=== PATIENT | female | born 1930 | race Caucasian/White ===

== ENCOUNTER 2018-12-08 16:21 | Inpatient (IN) ==
[~2018-12-08 16:21] MED LIST: NS 1,000 ML IV PRN; SALINE LOCK IV FLUID XX ONE
[2018-12-08 16:56] LABS: BASO# 0.01 X1000 (0.0-0.2); BASO% 0.1 % (0.0-0.8); EOS# 0.09 X1000 (0.0-0.7); EOS% 1.1 % (0.0-10.0); HEMATOCRIT 38.1 % (37.0-47.0); HEMOGLOBIN 12.3 g/dL (12.0-16.0); LYMPH# 1.11 X1000 (1.2-3.4); LYMPH% 13.2 % (20.5-51.1); MCH 30.7 PG (27-31); MCHC 32.3 g/dL (33-37); MONO# 0.97 X1000 (0.11-0.59); MONO% 11.5 % (1.7-9.3); MPV 8.9 FL (7.4-10.4); NEUT# 6.23 X1000 (1.4-6.5); NEUT% 74.1 % (42.2-75.2); PLT 239 X1000 (130-400); RBC 4.01 XMIL (4.2-5.4); RDW 13.7 % (11.5-14.5); WBC 8.41 X1000 (4.8-10.8)
[2018-12-08 17:09] LABS: INR 0.97; PROTIME 13.6 Seconds (11.0-16.0)
[2018-12-08 17:22] LABS: AGAP 13; ALBUMIN 3.6 g/dL (3.5-5.0); ALKALINE PHOSPHATASE 70 U/L (32-104); BUN 13 mg/dL (8-22); CALCIUM 8.8 mg/dL (8.8-10.2); CHLORIDE 101 mmol/L (98-107); COSMO 282; CREATININE 0.7 mg/dL (0.5-0.9); ESTIMATED GFR > 60; GLUCOSE 115 mg/dL (70-104); GOT 34 U/L (10-30); GPT 15 U/L (10-36); POTASSIUM 4.4 mmol/L (3.5-5.1); SODIUM 141 mmol/L (136-145); TCO2 27 mmol/L (25-35); TOTAL BILIRUBIN 1.29 mg/dL (0.20-1.00); TOTAL PROTEIN 7.1 g/dL (6.3-8.3)
[2018-12-08 17:25] LABS: CK PROFILE 191 U/L (24-173)
[2018-12-08 17:40] LABS: CK INDEX 2.5 (0.0-2.5); CK-MB 4.86 ng/mL (0.0-5.0)
[2018-12-08] MEDS ORDERED: NORCO-5 PO PRN (19:09)
[2018-12-08] MEDS ORDERED: LOPRESSOR PO ONE (19:13)
[2018-12-08] MEDS: TIMOPTIC 0.5% OPH SOLUTION BOTH EYES SCH (21:10)
[2018-12-08] MEDS: REMERON PO SCH (21:11)
[2018-12-08] MEDS: ZYPREXA PO SCH (21:11)
[2018-12-08] MEDS: ARICEPT PO SCH (21:11)
--- NOTE | 2018-12-09 07:38 | HISTORY AND PHYSICAL ---
ATTENDING PHYSICIAN: Dr. Asher Spencer. ADMITTING PHYSICIAN: Dr. Asher Spencer. CHIEF COMPLAINT: Failure to thrive, inability to independently transfer, and poor p.o. intake. HISTORY OF PRESENT ILLNESS: Ms. Kirk is an 88-year-old patient of mine with multiple medical problems including but not limited to dementia complicated by behavioral disturbances, history of peripheral vascular disease, history of microscopic hematuria, history of vitamin D deficiency, history of impaired fasting glucose, history of hypertension, dyslipidemia, hypothyroidism, osteoporosis, and pulmonary fibrosis. She was discharged on the from [facility] after suffering a fall, complicated by a subdural bleed. She was subsequently transferred to [facility] and remained there through the weekend. The son reports she had several CT scans to ensure stability of intracranial bleed and was discharged the day prior to admission for serial followup with neurosurgery in approximately a month and with orthopedics as it relates to a right thumb fracture. The son states that she has been unable to ambulate. She has been unable to get out of bed. Her cognitive state has declined significantly. She has had just a bowl of applesauce over the past 24 hours and is not drinking. Based on her current clinical condition and recent fall with closed head trauma, there is a concern for interval progression as well as potential underlying secondary causes. The patient continues to live alone at 88 years old. I discussed with the son the need for likely rehab following a closed head injury in an elderly person versus long-term placement in a fci facility or even consideration of hospice once additional evaluation has been performed. She will be admitted to the internal medicine service for additional management including but not limited to nutritional assessment, initiation of IV fluids, reevaluation of the head with a CT scan, additional lab as indicated, and perhaps an orthopedic evaluation. I do not have the records from [facility] and these have been requested accordingly. FAMILY HISTORY: Father at 89 years old secondary to stroke. Mother at 89 years old secondary to [place]. Brother secondary to end-stage kidney disease. Brother secondary to emphysema. SOCIAL HISTORY: Patient is with two children, a 65-year-old daughter and a 58-year-old son. She has four grandchildren and no great grandchildren. She was in 2018 after 67 years of marriage. She is a nonsmoker and a nondrinker. PAST SURGICAL HISTORY: History of bilateral cataract surgery, history wisdom teeth extraction, history of extensive dental and mouth surgery in 2007 and 2008, history of left hip fracture in 2008, history of subsequent oral surgery in 2010, history of foot surgery with a hammertoe deformity in December 2013, history of right wrist fracture complicated by need for plates - performed by a local orthopedic doctor and no surgery since 2004. She was admitted in the fall of 2017 for hallucinations and psychosis, and was started on a variety of medications. Her last annual wellness visit noted to be July of 2017. 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 REVIEW OF SYSTEMS: A 12 point review of systems is unremarkable except that noted above. MEDICATIONS ON ADMISSION: Including Cymbalta 20 mg once daily, Zyprexa 5 mg once daily, atorvastatin 20 mg once daily, Lumigan as directed, vitamin B12 sublingual, Aricept 5 mg once daily, Lasix 20 mg once daily, levothyroxine 50 mcg once daily, metoprolol 25 mg once daily, Remeron 75 mg once daily, timolol gel as directed, and Weston 325 one p.o. q.8 hours p.r.n., and left wrist pain. PHYSICAL EXAMINATION: VITAL SIGNS: On admission, blood pressure 163/83, pulse at 89, respirations at 16, temperature at 98.1 degrees, saturating 95% on room air. The patient is weighing 99 pounds and 4.8 ounces on admission. HEENT: Remarkable for a large area of ecchymosis on the right lateral orbit of the eye. Palpation of this area produces tenderness but no crepitus or palpable deformity. Oral mucosal membranes are dry. NECK: Soft and supple without lymphadenopathy or bruits. CARDIOVASCULAR: Regular rate with increased ectopy versus atrial dysrhythmia. EKG is pending at the time of dictation. RESPIRATORY: Lungs are clear with poor respiratory effort. There are no wheezes, rhonchi, or rales. GASTROINTESTINAL: Abdomen is soft and somewhat scaphoid in appearance secondary to weight loss. EXTREMITIES: Without clubbing, cyanosis, or edema. There is discoloration of the distal left upper extremity at the level of the wrist distally, consistent with a recent injury. The area splinted. The patient is able to make a fist with difficulty. Remains extremely tender over both the distal portions of the radius and ulna. A repeat x-ray would be indicated. NEUROLOGIC: Cranial nerves 2-12 appear to be grossly intact. She is alert and oriented to place and today. No other significant findings on exam. LABORATORY: White blood cell count 8.4, hemoglobin and hematocrit of 12.3 and 38.1, with platelets at 237,000. PT and INR at 13.6 and 0.9. Sodium at 141, potassium at 4.4, chloride at 101, BUN and creatinine at 13 and 0.7, with GFR at 60, glucose at 115, calcium is normal. Total bilirubin at 1.29, mildly elevated. AST at 34, ALT at 35. CK at 119, creatine kinase index at 2.5, and CK-MB at 4.86. Urine culture is pending at the time of admission. Recent CT scan of the head performed on 12/04/2018 showing a right frontal scalp contusion, a tiny subarachnoid hemorrhage in the left central sulcus, advanced degenerative disease involving the cervical spine at C3-C4 and C4-C5, as well as radiographic evidence of pulmonary fibrosis which is known by history. A wrist x-ray is not perform locally. Last wrist x-ray of record is noted to be March of 2016. Last inhouse EKG is reviewed, demonstrating the presence of normal sinus rhythm with a normal axis, nonspecific high lateral changes in aVL with T-wave inversion, and the presence of RSR prime in V2 suggestive of an incomplete right bundle branch block. IMPRESSION: An 88-year-old with inability to stand spontaneously or use assistive devices secondary to a recent closed head injury as well as a left wrist fracture, perhaps prematurely discharged to home for independent living. She has declined over the past 24 hours and is readmitted to the internal medicine service for supportive care, further diagnostic workup, and orthopedic evaluation. She did have a fall several years ago and a right wrist fracture which required surgical intervention. We will be obtaining an x-ray of the left wrist and proceeding with orthopedic evaluation if indicated. In the interim, I spoke to the family about need for short-term rehab as a means of transitioning back to home if this continues to be the desire of the patient and the family; otherwise, short-term rehab with the possibility of long-term placement versus transitioning to hospice care. It is my opinion as of this point that, based on the patient's advanced age, recent closed head injury with the complication of a bleed, and a left wrist fracture that she is not a candidate for independent living and will require ongoing assistance. No new and/or additional recommendations at this time. Note is dictated following the evening of admission. cc: Asher Spencer DO
--- NOTE | 2018-12-09 08:08 | Diag Imaging Result Doc PS360 ---
EXAM: CT HEAD W/O CONTRAST INDICATION: fall with h/o CHI/bleed unable to stand after D/C TECHNIQUE: This exam was performed using automated exposure control, adjustment of mA or kV according to patient size, and/or use of iterative reconstruction technique. COMPARISON: 12/04/2018 FINDINGS: There is no definite acute infarct given the limited sensitivity of CT versus MRI. The trace acute subarachnoid blood in the central sulcus on the left has not changed. No new intracranial hemorrhage is identified. Mild edema at the frontal scalp has improved. The calvaria is intact. IMPRESSION: Stable trace sulcal blood in the central sulcus on the left. No new hematoma is identified. Electronically signed by Santosh Boone 12/09/2018 8:06 AM
[2018-12-09] MEDS: NS 1,000 ML IV SCH ×2 (08:15→23:04)
[2018-12-09] MEDS: LOPRESSOR PO SCH ×3 (08:47→22:28)
[2018-12-09] MEDS: CYMBALTA PO SCH (08:47)
[2018-12-09] MEDS: LUMIGAN 0.01% OPH SOLUTION OPH SCH (08:51)
[2018-12-09] MEDS: TIMOPTIC 0.5% OPH SOLUTION BOTH EYES SCH ×2 (08:51→22:31)
--- NOTE | 2018-12-09 10:38 | Diag Imaging Result Doc PS360 ---
WRIST COMPLETE LEFT - 12/09/2018 INDICATION: left wrist fracture after fall TECHNIQUE: Three views COMPARISON: None FINDINGS: There is no fracture or dislocation. There is moderate degeneration at the radial side of the wrist, at most of the intercarpal joints. There is some degenerative chondrocalcinosis of the triangular fibrocartilage complex. IMPRESSION: No fracture. Electronically signed by Ricardo Siegel 12/09/2018 10:36 AM
--- NOTE | 2018-12-09 19:20 | PROGRESS NOTE ---
DATE: 12/09/2018 INDICATION FOR PROLONGED HOSPITALIZATION: Status post CT scan for followup on history of fall with subarachnoid hemorrhage. Over the past 24 hours, the patient's status has improved. She appears to be taking in p.o. intake without difficulty and tolerating additional IV fluids. A radiology opinion based on x-ray results suggesting a strain of the left wrist versus a fracture. We had no objective data to review from [facility]. Last night an EKG was ordered and was not performed today. Today telemetry strips would suggest the presence of atrial fibrillation. This would be a new finding for this patient. Duration is uncertain. There is no mention of dysrhythmia on hospital discharge from the [facility]. Patient has no complaints at this time. The daughter and son are at the bedside. OBJECTIVE: Vitals at the time of dictation: Blood pressure 142/75, pulse at 98, respirations at 20, temperature at 98.5 degrees with T-max at 98.7 degrees. Cumulative ins and outs: 1067 in and 1200 out for -133. Laboratory Data For Today: None ordered. Imaging: CT scan from earlier this morning showing stable trace blood in the central sulcus on the left with no new hematoma identified. Persistence of mild edema of the frontal scalp previously noted on 12/04/2018 study is intervally improved. The calvaria is intact without any defects. X-ray of the wrist showing degenerative changes at the radial side but no evidence of acute fracture. Telemetry strips reviewed at the bedside demonstrating the presence of atrial fibrillation. Physical examination: HEENT: Unremarkable with the exception of posttraumatic ecchymosis about the right orbital and eye. Neck: Soft and supple without lymphadenopathy or bruits. Cardiovascular: Irregular rate/rhythm Musculoskeletal: There is a significant amount of ecchymosis involving the right shoulder and right posterior scapular region. There is some difficulty with raising the arm on exam. An x-ray of the shoulder will be obtained for review. Abdomen: Soft, nontender. Extremities: Benign with the exception of discoloration secondary to recent sprain of the left upper extremity. There is palpatory tenderness in the anterior lower extremities, but no pitting edema is noted. Neurological: Cranial nerves 2 through 12 appear to be grossly intact. Patient is somewhat confused speaking of folks that have either passed on or are imaginative. IMPRESSION: An 88-year-old with a recent fall on 12/05/2018 complicated by cerebral hemorrhage, stable, patient having been treated and evaluated in [facility], subsequently discharged to home, unable to live independently secondary to wrist trauma, confusion and unsteady gait. She is readmitted to the Internal Medicine Service with now apparently a new onset atrial fibrillation. Etiology and duration is uncertain. We will be obtaining a cardiology consult. She is a contraindication to aggressive anticoagulation secondary to recent head trauma with intracranial bleed. Therefore rate control will be the primary focus. We will be getting the opinion of cardiology non-emergently tomorrow. I am uncertain as to whether a cardiac echo will add any additional value to managing this patient. Her current code status is DNR. We did discuss placement as soon as of Friday in a short-term rehab facility with the intent of returning to home with loading dock helper and Home Health Care. The family is aware that if this does not provide useful and/or continues as a viable option, then long-term placement in senior care facility versus palliative care at home are additional options to consider. We will be obtaining an EKG tonight for review and record. The daughter, son and patient understand the course of treatment and plan. No further issues at this time. Note is dictated on the evening of rounds. cc: DO DANIEL Urban
--- NOTE | 2018-12-09 19:58 | CONSULTATION ---
DATE OF CONSULTATION: 12/09/2018 CHIEF COMPLAINT: Head bleed. HISTORY OF PRESENT ILLNESS: Ms. Kirk is an 88-year-old female who recently had a head bleed and had been discharged from [facility]. Unfortunately, she was not doing great at home and so got readmitted and is waiting for rehab placement now. There was report that she may have had a wrist fracture. There was a removable brace put on her left wrist. Orthopedics has been consulted to take a look at everything. She does have a history of a wrist fracture on the right side that required surgical intervention. PAST MEDICAL HISTORY: Hip fracture back in 2008, several oral surgeries. She had hammertoe correction in the past and right wrist fracture. Peripheral vascular disease, dementia, pulmonary fibrosis, osteoporosis. PAST SURGICAL HISTORY: Had hip fracture repair. She had a right wrist repaired, some hammertoe corrections. MEDICATIONS: Per the medical record. SOCIAL HISTORY: She is a nonsmoker and nondrinker. REVIEW OF SYSTEMS: Positive for recent head bleed and inability to get up and ambulate and some left wrist pain. All other systems are essentially negative. PHYSICAL EXAMINATION: General: Elderly appearing female, but she is in no acute distress. Head and neck: She has some ecchymoses to her face. Extraocular muscles are intact. Respiratory: Non-labored breathing. Cardiovascular: Regular pulse. Abdomen: Nondistended. Left upper extremity exam: She has some ecchymoses throughout the wrist and forearm. All her hand intrinsics are intact. She has good sensation to light touch to all the fingers and 2+ radial pulse. I do not see any skin ulcerations or abrasions anywhere. IMAGING: Two-view left wrist here at our facility shows very good overall alignment. I do not see a definite fracture. There was a little bit of a lucency there at the radial styloid, but everything lines up really well. I am not sure I would call that a definite fracture. ASSESSMENT: Left wrist pain. PLAN: Ms. Kirk is going to use the wrist brace when she is up and moving especially when she is using her walker. When she is lying in the bed, she can take the wrist brace off so it does not damage her skin because her skin is pretty frail. She can follow with me in clinic after she is done with rehab. cc: MD Asher Mendez, DO
[2018-12-09] MEDS: ZYPREXA PO SCH (22:28)
[2018-12-09] MEDS: REMERON PO SCH (22:29)
[2018-12-09] MEDS: ARICEPT PO SCH (22:29)
--- NOTE | 2018-12-10 07:14 | PROGRESS NOTE ---
DATE: 12/10/2018 INDICATION FOR PROLONGED HOSPITALIZATION: New onset atrial fibrillation. Cardiology opinion pending. Status post recent closed head injury with intracranial bleed, stable without further progression. Patient remains hemodynamically stable and afebrile. Deepikabroderick arlen states that the patient had a good night and slept well since about 11 p.m., she is currently resting at the time of rounds and exam, and interview is not performed at this time. OBJECTIVE: Vitals: This morning, blood pressure 133/66, respirations at 16, pulse at 56, this would be rather low, she has been running between 88 and 100. I's and O's cumulatively 2984 in and 1525 out, for plus 1459. LABS: There are no labs for review this morning. EKG obtained last night following evening rounds demonstrating atrial fibrillation with rapid ventricular response. Cardiology opinion is pending. IMPRESSION: An 88-year-old with new onset atrial fibrillation, recent fall with closed head injury resulting in intracranial bleed. She has a contraindication for aggressive anticoagulation secondary to high risk for furtherance and/or recurrence of intracranial bleeding as well as high risk for falls complicated by hemorrhage. I suspect, at this point, that she will likely just be a candidate for rate control. She is on a beta carlos and her heart rate seems to be somewhat overly corrected, now down to bradycardia less than 60. She is currently on metoprolol 12.5 mg p.o. b.i.d. A repeat EKG for this morning is ordered and pending at the time of dictation. Urine culture dated 12/08/2018 is noted to be negative. Patient does have a history of fall with contusion to the right face and right shoulder with large amount of ecchymosis noted about the right upper torso and posterior right scapular area. There was some difficulty last night with her raising her or arm, although she did not specifically complain of right shoulder pain. A chest x-ray and a right shoulder film will be obtained today for review. I anticipate probable discharge to short-term rehab facility as soon as tomorrow, Friday, 12/11. This will be with intent to transition back to independent living in her personal residence. We will continue to follow in this regard. No new and/or additional issues at this time. Again, the patient is resting so a physical exam is not performed at this time. Follow up on Radiology and Cardiology opinion and recommendations later today. cc: Asher Spencer, DO
--- NOTE | 2018-12-10 07:39 | EKG Report ---
Test Performed on : 12/10/2018 07:07:17 AM Test Reason : atrial fibrillation Blood Pressure : / mmHG Vent. Rate : 069 BPM Atrial Rate : 101 BPM P-R Int : 000 ms QRS Dur : 086 ms QT Int : 414 ms P-R-T Axes : 000 027 062 degrees QTc Int : 443 ms Atrial fibrillation. with a competing junctional pacemaker. Abnormal ECG When compared with ECG of 09-DEC-2018 18:38, (Unconfirmed) No significant change was found Unconfirmed Result
--- NOTE | 2018-12-10 09:32 | CARDIOLOGY CONSULTATION ---
DATE: 12/10/2018 CONSULTATION REQUESTED BY: Dr. Spencer. REASON FOR CONSULTATION: New onset of atrial fibrillation. HISTORY: Mrs. Kirk is an unfortunate 88-year-old, female, who was in her usual state of health until December 04. She was at home and got out of bed and walked around her bed to go to the bathroom, and she fell on her right side. She bumped her head and her right shoulder. She was brought to the hospital and from here she was immediately taken to [facility] because of demonstration of some intracranial bleed. The CT scan of the initial encounter December 04 showed right frontal scalp soft tissue contusion, tiny acute subarachnoid hemorrhage in the left central sulcus. In the hospital the patient was observed and she was sent home on December 07. After her arrival to her home the patient has been minimally active. The family was concerned and she was seen on Friday by Dr. Asher Spencer at his office and after that encounter he recommended admission to the hospital for further evaluation. Incidentally, on telemetry strip they found that the patient was in atrial fibrillation. The patient has been very hypoactive. She wakes up to voice commands however she drifts back into lethargy or sleep like is status. She has some pain in the wrist. She has an extensive bruising involving the right shoulder, right anterior pectoralis area and right shoulder blade. She seems to be comfortable and calm. A close friend/relative is sitting next to her and he fills in the gaps. The patient is not able to provide me with any history. PAST HISTORY: Recently positive for dementia. She was admitted to [facility] because of behavioral disturbances back in June of last year. They had to medicate her. The patient has really no prior history of heart disease. She has some hyperlipidemia, some hypothyroidism. SURGICAL HISTORY: Really noncontributory. SOCIAL HISTORY: She became a about 18 months ago. She has 2 grown up children. FAMILY HISTORY: The patient has no significant family history. HOME MEDICATIONS: At the time of this admission included atorvastatin 1 tablet at bedtime. Lumigan eye drops. Donepezil 5 mg at bedtime. Cymbalta 20 mg daily. Lasix 1 tablet daily. Synthroid 50 mcg daily. Metoprolol 12.5 mg daily. Remeron 7.5 at bedtime, olanzapine 2.5 to 5 at bedtime. ALLERGIES: To penicillin, acetaminophen, Ceclor and Cefzil. REVIEW OF SYSTEMS: The patient was admitted to a hospital affiliated to [facility] in [place] last year because of chest tightness. She was seen by cardiology there. They observed her for a day and a half or so. No specific diagnosis is recalled by the family member. We may want to get records from them. There is no previous history of heart disease as far as the patient and the family member can tell. The patient is unable to provide information regarding review of systems . The fact is that she is quite feeble and since this recent fall she cannot get out of bed or do really anything by herself. She is totally 100% depending on other people at this time. PHYSICAL EXAMINATION: Vital signs: Blood pressure 133/66, temperature 97.8 degrees pulse 53, respirations 16. General: She is very lethargic, in no distress. She arouses to voice commands. Chest: Clear to auscultation and percussion. Heart: Sounds are irregularly irregular with an opening snap and a soft rumble of mitral stenosis. This is no more than 1 to 2/6 in intensity. Neck: Veins are not distended. She has negative cervical bruits. Abdomen: Nontender. Extremities: Showed palpable pulses bilaterally. There is no edema. Neurological: She is very lethargic. She does not have any focal weakness. She is just generally weak. LABORATORY: Sodium 141, potassium 4.4, BUN and creatinine normal. Troponin has not been checked. Albumin is normal. Hemoglobin is normal. IMPRESSION: 1. Patient who was just found to have atrial fibrillation with controlled response. 2. Possible case of rheumatic heart disease with mitral stenosis being very likely based on auscultation. 3. Recent fall with subarachnoid hemorrhage, brain concussion/contusion. 4. Extensive bruising in the right shoulder area, shoulder blade and right anterior pectoralis muscle area. 5. Dementia. 6. Hypothyroidism. 7. Hyperlipidemia. RECOMMENDATION: At this time I agree with your management using metoprolol to control the rate. As you said in your note I do not believe this patient is a reasonable candidate for warfarin. If she really had mitral stenosis and if we proved that is what she has by echo, she would really need to be on warfarin and this patient is a very poor candidate for warfarin therapy. We will do an echocardiogram to confirm. At this point in time, I will not do any additional intervention. Please call me if you need further assistance. We appreciate the opportunity to participate in this patient's care. cc: MD Asher Zamora, DO WAID
--- NOTE | 2018-12-10 10:04 | Diag Imaging Result Doc PS360 ---
TRAUMA SHOULDER RIGHT - 12/10/2018 INDICATION: h/o fall 12/05/2018; limited ROM with abduction TECHNIQUE: Three views COMPARISON: None FINDINGS: There is a displaced fracture of the right distal clavicle. This is age-indeterminate. The glenohumeral joint is intact. IMPRESSION: Age-indeterminate, displaced fracture of the right distal clavicle. Electronically signed by Ricardo Siegel 12/10/2018 10:02 AM
--- NOTE | 2018-12-10 10:05 | Diag Imaging Result Doc PS360 ---
CHEST-1 VIEW - 12/10/2018 INDICATION: rehab COMPARISON: 07/28/2018 FINDINGS: There is age-indeterminate displaced fracture of the right distal clavicle. There is worsening, significant biapical pleural-parenchymal fibrosis. Lungs are hyperexpanded compatible with COPD. There are small bilateral pleural effusions. No definite infiltrates or edema. Arch size is top normal. There is stable significant levoscoliosis and rotary scoliosis of the thoracolumbar spine. IMPRESSION: Worsening, nonspecific findings. Electronically signed by Ricardo Siegel 12/10/2018 10:03 AM
--- NOTE | 2018-12-10 10:48 | EKG Report ---
Test Performed on : 12/09/2018 6:38:00 PM Test Reason : ABN cardiac exam Blood Pressure : / mmHG Vent. Rate : 096 BPM Atrial Rate : 416 BPM P-R Int : 000 ms QRS Dur : 080 ms QT Int : 350 ms P-R-T Axes : 000 016 036 degrees QTc Int : 442 ms Atrial fibrillation. Nonspecific ST abnormality Abnormal ECG When compared with ECG of 27-JUL-2018 15:26, Atrial fibrillation. has replaced Sinus rhythm. ST now depressed in Inferior leads T wave amplitude has decreased in Inferior leads Nonspecific T wave abnormality now evident in Anterior leads Unconfirmed Result
[2018-12-10] MEDS: CYMBALTA PO SCH (11:23)
[2018-12-10] MEDS: LOPRESSOR PO SCH ×2 (11:24→20:30)
[2018-12-10] MEDS: TIMOPTIC 0.5% OPH SOLUTION BOTH EYES SCH ×2 (13:44→20:31)
[2018-12-10] MEDS: LUMIGAN 0.01% OPH SOLUTION OPH SCH (13:44)
[2018-12-10] MEDS: NS 1,000 ML IV SCH (13:45)
[2018-12-10] MEDS: REMERON PO SCH (20:30)
[2018-12-10] MEDS: ZYPREXA PO SCH (20:31)
[2018-12-10] MEDS: ARICEPT PO SCH (20:31)
[2018-12-11] MEDS: NS 1,000 ML IV SCH (03:56)
[2018-12-11 07:51] VITALS: BP 160/96
--- NOTE | 2018-12-11 07:52 | DISCHARGE SUMMARY ---
ADMISSION DATE: 12/08/2018 DISCHARGE DATE: 12/11/2018 DISCHARGE DIAGNOSES: 1. New onset atrial fibrillation with rapid ventricular response status post Cardiology opinion recommending conservative therapy with aspirin and negative chronotropic agent, specifically metoprolol 12.5 mg twice daily. She is not a candidate for aggressive anticoagulation secondary to recent history of fall complicated by intracranial bleed. 2. Elevated CK and elevated AST. Etiology and clinical significance uncertain. No evidence of myocardial ischemia and/or infarction. 3. Wrist sprain, left-sided secondary to historical further complicated by left hand pain status post x-ray with orthopedic evaluation. Severe sprain is diagnosed. Recommend conservative therapy with splinting. 4. Closed fracture of the distal portion of the right clavicle, likely recent fall and trauma- induced, not previously identified with admission to outside facility. 5. Poor p.o. intake and BMI less than 19. 6. History of subarachnoid hemorrhage without interval progression. PROCEDURES DURING ADMISSION: CT scan on 12/09/2018 demonstrating stable sulcal blood in the central sulcus on the left without evidence of new hematoma or progression. CONSULTATIONS: During admission including Orthopedics for left wrist and left hand pain, and Cardiology for new onset atrial fibrillation. HOSPITAL COURSE: Ms. Kirk was admitted to the internal medicine service after recent discharge from outside facility for a fall with evidence of subarachnoid hemorrhage. She presented to the office with failure to thrive, inability to stand and persistent left wrist and right shoulder pain. She was admitted to the internal medicine service and found to be in atrial fibrillation which is a new finding for her. Further investigation of wrist and shoulder pain were pursued demonstrating findings of fracture of the right clavicle and a moderate to severe spurring of the left wrist. Her diet was advanced and tolerated well. She received IV fluids and improved. She has remained otherwise hemodynamically stable, heart rate ranging between 56 and 101, this primarily atrial fibrillation mediated. Saturation has been somewhat low, ranging between 94 and 98. Chest x-ray the day prior to discharge demonstrating biapical pleural parenchymal fibrosis, small bilateral pleural effusions and evidence of significant levoscoliosis with rotatory scoliosis component of the thoracolumbar spine. DISPOSITION: It is my medical opinion that based on the patient's recent clinical history including fall with subarachnoid hemorrhage, severe left wrist sprain and broken distal right clavicle as well as potential problems with returning to home for independent living, that this patient is an excellent candidate for rehab. There are certainly logistical issues with patient using assistive walker device with both upper extremities compromised and with history of increasing falls and risk for fall and recurrence of head injury or new trauma resulting in further clinical decline. I am uncertain as to why she was discharged from [facility] without a consideration for short-term rehab but we will be placing her in short-term rehab with the intent of returning her to home. We did discuss other possibilities including but not limited to, home hospice and/or long-term care facility. The patient continues to remain a DNR at this time. MEDICATIONS AT THE TIME OF DISCHARGE: 1. Lumigan drops 1 drop b.i.d. 2. Aricept 5 mg p.o. at bedtime. 3. Cymbalta 20 mg p.o. daily. 4. Madison 5/325 one p.o. q.6 hours p.r.n., #24 with no refill. 5. Remeron 7.5 mg p.o. at bedtime. 6. Zyprexa 2.5 mg p.o. daily. 7. Timoptic as directed. 8. Atorvastatin 20 mg once daily. 9. Lasix 20 mg once daily. Prescriptions for both the metoprolol and Madison are present on the chart at the time of discharge. Family is to be contacted regarding pending discharge for today. No new and/or additional recommendations at this time. cc: Asher Spencer DO
--- NOTE | 2018-12-11 09:55 | ECHO REPORT ---
ORDER DATE: 12/10/2018 INTERPRETING PHYSICIAN: Alejandro Grace MD INDICATION: Atrial fibrillation and dementia. M-MODE MEASUREMENTS: Left ventricle end diastole: 3.1 cm. Left ventricle end systole: 2 cm. Posterior wall: 1 cm. Interventricular septum: 1 cm. Left atrium: 3.3 cm. Aortic diameter: 2.9 cm. SUMMARY OF 2-DIMENSIONAL IMAGIN. This study was difficult and Definity was added to optimize visualization of the endocardium. 2. The left ventricle is hyperdynamic. The chamber is very small. Ejection fraction is 75%. 3. The aortic valve shows thickening of the cusps. Color flow mapping indicates a mild degree of regurgitation. 4. The mitral valve shows thickening of the anterior leaflet. I cannot really exclude the possibility of a scarring of the mitral valve because of a poor 4 chamber view. The Doppler signal of the mitral valve on the 4 chamber view was gravely poor. Color flow mapping of the mitral valve is unremarkable. There is a very mild degree of regurgitation. 5. The tricuspid valve is unremarkable. 6. The pulmonic valve is also unremarkable. 7. There is no pericardial effusion and no sign of thrombus. Clinical correlation is recommended. cc: MD Asher Zamora DO
[2018-12-11] MEDS: TIMOPTIC 0.5% OPH SOLUTION BOTH EYES SCH (10:06)
[2018-12-11] MEDS: LOPRESSOR PO SCH (10:06)
[2018-12-11] MEDS: CYMBALTA PO SCH (10:06)
[2018-12-11] MEDS: LUMIGAN 0.01% OPH SOLUTION OPH SCH (10:07)
--- NOTE | 2018-12-11 12:57 | Diag Imaging Result Doc PS360 ---
EXAM: CHEST-2 VIEWS HISTORY: pre-Rehab placement TECHNIQUE: Chest two views COMPARISON: 12/10/2018 FINDINGS: The lungs are hyperexpanded. There is an increased AP diameter to the chest. The heart is not enlarged. There are small bilateral pleural effusions. There is apical pleural thickening and scarring. Moderate scoliosis. Borderline mild pulmonary edema. IMPRESSION: Emphysema with small pleural effusions. Electronically signed by Gary Thayer 12/11/2018 12:55 PM
== END 2018-12-11 14:24 | DRG 640 ==
LOC: EDIPHOLD 16:28 → 4N 16:57
PROVIDERS: ADMIT Internal Medicine; ATTEND Internal Medicine
CPT/HCPCS: 70450; 71010; 71020; 71045; 71046; 73030; 73110; 80053; 82550; 82553; 85025; 85610; 87088; 93005; 93306; 94761; 97110; 97162; 97166; 97530; A9270; C8929; J7030; Q9957